=== PATIENT | male | born 1995 | race Caucasian/White ===

== ENCOUNTER 2018-10-04 13:13 | Emergency (ER) | payer OTHER ==
[~2018-10-04] VITALS: Ht 170.2 cm; Wt 78.9 kg
[~2018-10-04 13:13] MED LIST: ACETAMINOPHEN-1 EAC1 PO; CEPHALEXIN 500500 M3 PO; CLARITIN-D 24 H1 TA1 PO; HYDROCODON-ACE1 EACH PO; IBUPROFEN 400400 M1 PO; IBUPROFEN 800800 M1 PO; IBUPROFEN 800800 MG PO; NOHOMEMEDICATIONS; PENICILLIN V P500 MG PO; PENICILLIN VK250 MG PO; ROBITUSSIN COU237 M1 PO; SINUS NASAL SPR30 M1 NS
[2018-10-04 14:35] VITALS: BP 121/80
== END 2018-10-04 14:36 | disposition home or self-care (01) ==
LOC: M.ERS 13:13
DX: H61.21 Impacted cerumen, right ear (principal); F17.210 Nicotine dependence, cigarettes, uncomplicated